=== PATIENT | female | born 1940 | race Caucasian/White ===

== ENCOUNTER 2021-12-05 07:12 | Day surgery (SDC) | payer MEDICAID, SELFPAY ==
[2021-11-29 14:20] VITALS: BMI 22.2
--- NOTE | 2021-12-01 08:01 | MHC.SHP ---
Pre-Procedural Eval Section A Date of Service: 12/01/21 The patient is an INPATIENT: No Changes since office visit: No Cold of Flu in the past 2 weeks, No New Medical Problems, No Changes in Medication and No Patient answered all questions The History & Physical has been completed within 30 days and I have reviewed it.: Yes Section B Chief Complaint: cataract Allergies: Allergies Allergy/AdvReac Type Severity Reaction Status Date / Time No Known Allergies Allergy Verified 11/29/21 14:24 Plan Diagnosis/Plan: Unchanged I have reviewed the history and physical and performed a pertinent physical examination on my patient. No changes have occurred unless specified.
--- NOTE | 2021-12-02 08:56 | P.CONAN_ITS ---
Documented by User: Monique Fernandes NP 12/02/21 08:57 HPI - Anesthesia Eval Consult details Narrative: 81yo F for Left Cataract Extraction IOL Insertion PCP cleared No previous cataract on record Xarelto for afib [facility] Past Medical History Medical History (Updated 11/29/21 @ 14:43 by Scarlet Hahn, TEO) Atrial fibrillation CAD (coronary artery disease) Chronic renal insufficiency COVID-19 vaccination declined History of COVID-19 Mitral regurgitation Myocardial infarction On anticoagulant therapy Pulmonary hypertension Surgical History Surgical History (Updated 11/29/21 @ 14:20 by Scarlet Hahn RN) History of total hip arthroplasty Hx of laparoscopy Social History Social History Are you a primary rn managed care to a significant other at home: No Do you presently have visiting nurse or other home services: No Patient Tobacco Use Status: Never used Tobacco Use of substances other than those prescribed or required for medical reasons: No Have you been hit, kicked, punched, or otherwise hurt by someone within the past year? If so, by whom?: No Advance Directives: No Advance Directives Information Provided: Yes Advance Directives on File: No Recently lost weight without trying: No Eating poorly because of decreased appetite: No Nutrition Risks: Surgical patient >75years Meds Allergies Allergy/AdvReac Type Severity Reaction Status Date / Time No Known Allergies Allergy Verified 12/05/21 07:42 Home Medications Medication Instructions Recorded Confirmed Last Taken Type bisoprolol fumarate 5 mg tablet 1 tab PO DAILY 11/29/21 11/29/21 Unknown History losartan 50 mg tablet 1 tab PO DAILY 11/29/21 11/29/21 Unknown History rivaroxaban 20 mg tablet (Xarelto) 1 tab PO QPM 11/29/21 11/29/21 Unknown History Exam Exam Date and Time: December 02, 2021 0856 Height,Weight and Vital Signs: Height 5 ft Weight 51.71 kg Assessment and Plan Assessment Anesthesia Assessment: Chart Reviewed Documented by User: Tray Rosas MD 12/05/21 08:05 [facility] Past Medical History Medical History (Updated 11/29/21 @ 14:43 by Scarlet Hahn RN) Atrial fibrillation CAD (coronary artery disease) Chronic renal insufficiency COVID-19 vaccination declined History of COVID-19 Mitral regurgitation Myocardial infarction On anticoagulant therapy Pulmonary hypertension Family History Family history of problems with anesthesia: No Surgical History Surgical History (Updated 11/29/21 @ 14:20 by Scarlet Hahn RN) History of total hip arthroplasty Hx of laparoscopy History of Problems with Anesthesia: No Social History Social History Are you a primary rn managed care to a significant other at home: No Do you presently have visiting nurse or other home services: No Patient Tobacco Use Status: Never used Tobacco Use of substances other than those prescribed or required for medical reasons: No Have you been hit, kicked, punched, or otherwise hurt by someone within the past year? If so, by whom?: No Advance Directives: No Advance Directives Information Provided: Yes Advance Directives on File: No Recently lost weight without trying: No Eating poorly because of decreased appetite: No Nutrition Risks: Surgical patient >75years Meds Allergies Allergy/AdvReac Type Severity Reaction Status Date / Time No Known Allergies Allergy Verified 12/05/21 07:42 Home Medications Medication Instructions Recorded Confirmed Last Taken Type bisoprolol fumarate 5 mg tablet 1 tab PO DAILY 11/29/21 11/29/21 Unknown History losartan 50 mg tablet 1 tab PO DAILY 11/29/21 11/29/21 Unknown History rivaroxaban 20 mg tablet (Xarelto) 1 tab PO QPM 11/29/21 11/29/21 Unknown History Exam Airway Mallampati Class: II TM Dist: >3cm Neck ROM: Full Denture: Upper and Lower Heart: irreg irre s1s2 Lungs: cta b/l Assessment and Plan Assessment Anesthesia Assessment: Anesthesia Plan Discussed Final Anesthetic Review Family History of Problems with Anesthesia: No History of Problems with Anesthesia: No NPO: Yes ASA Class: III Final Preanesthetic Review: No Changes in Pt Med Stat, Meds/Allgs Chart Reviewed, Consent Obtained/Reviewed and Anes Risks/Benef Reviewed Patient Risk: Intermediate Procedure Risk: Low Assessment/Block/Sedation in SS: Assess/Block/Sedation-SS Anesthetic Plan Anesthetic Plan: MAC: and Agree w/ Assess. and Plan Disposition: Standard PACU
[2021-12-05] MEDS: Tetracaine HCl/PF 0.5% Oph Sol 4 ML DROPS 1 DROP EYE-LEFT (07:56)
[2021-12-05] MEDS: Lactated Ringers 500 ML 50 ML IV (07:57)
[2021-12-05] MEDS: Tropicamide 1 % Ophth Sol 3 ML BTL 1 DROP EYE-LEFT ×3 (07:57→08:09)
[2021-12-05] MEDS: Phenylephrine HCL 2.5% Oph SoL 2 ML BOTTLE 1 DROP EYE-LEFT ×3 (08:01→08:13)
[2021-12-05 08:08] VITALS: BP 157/94; PULSE 70; RESP 16; TEMP 36.9; O2SAT 97
--- NOTE | 2021-12-05 08:38 | HO.PNOPHT ---
Ophthalmology Procedure Procedure Date of Service: 12/05/21 Ophthalmology Viscoelastic: Healon Duet Dual Pack Pro Ophthalmology Lenses: TECNIS [id number] (25.5) Procedure Notes: PREOPERATIVE DIAGNOSIS: Decreased visual acuity left eye secondary to cataract POSTOPERATIVE DIAGNOSIS: Same PROCEDURE: Left cataract extraction with intraocular lens insertion SURGEON: Cam Roman M.D. ANESTHESIA: Topical/MAC ESTIMATED BLOOD LOSS: None COMPLICATIONS: None After obtaining informed consent, the patient was brought to the operation room suite and placed in the supine position. After adequate sedation per anesthesia, topical drops of Tetracaine were given to the left eye. The eye was then prepped and draped in the usual sterile fashion. The operating room microscope was then positioned over the operative eye and a lid speculum placed. A paracentesis was created. Viscoelastic was then instilled into the anterior chamber. A three plane incision was then created temporally, utilizing a 2.85 mm keratome. Capsulotomy forceps were then utilized to create a circular tear capsulotomy. Hydrodissection and hydrodelineation were carried out until adequate mobilization of the nucleus occurred. Phacoemulsification was then utilized to remove the dense central nucleus followed by removal of the cortical material utilizing the automated aspiration irrigation unit. Viscoat elastic was instilled into the posterior capsular bag followed by placement of a posterior chamber intraocular lens without difficulty. The residual Viscoat elastic was then removed utilizing the automated IA machine. The wound was check and found to be watertight. The patient tolerated the procedure well and the lid speculum was removed. Intracameral injection of Vigamox 0.1 mL followed by a subtenon injection of Kenalog-40 0.2 mL were administered. The patient will be seen in the a.m.
[2021-12-05 09:04] VITALS: BP 167/96; PULSE 75; RESP 18; TEMP 36.8; O2SAT 95
== END 2021-12-05 09:27 | disposition home or self-care (01) ==
PROVIDERS: Visit Provider Ophthalmology
PROC: (CPT 66985; principal; 2021-12-05 08:50)
DX: H25.12 Age-related nuclear cataract, left eye (principal); H52.4 Presbyopia; I12.9 Hypertensive chronic kidney disease with stage 1 through stage 4 chronic kidney disease, or unspecified chronic kidney disease; N18.9 Chronic kidney disease, unspecified; H35.3131 Nonexudative age-related macular degeneration, bilateral, early dry stage; Z79.899 Other long term (current) drug therapy
CPT/HCPCS: 66984; J3010; J3300; V2632

== ENCOUNTER 2021-12-19 07:55 | Day surgery (SDC) | payer MEDICAID, SELFPAY ==
[2021-11-29 14:25] VITALS: BMI 22.2
--- NOTE | 2021-12-15 08:09 | MHC.SHP ---
Pre-Procedural Eval Section A Date of Service: 12/15/21 The patient is an INPATIENT: No Changes since office visit: No Cold of Flu in the past 2 weeks, No New Medical Problems, No Changes in Medication and No Patient answered all questions The History & Physical has been completed within 30 days and I have reviewed it.: Yes Section B Chief Complaint: cataract Allergies: Allergies Allergy/AdvReac Type Severity Reaction Status Date / Time No Known Allergies Allergy Verified 12/05/21 07:42 Plan Diagnosis/Plan: Unchanged I have reviewed the history and physical and performed a pertinent physical examination on my patient. No changes have occurred unless specified.
--- NOTE | 2021-12-15 10:59 | HO.ANESPROP2 ---
Documented by User: Monique Fernandes NP 12/15/21 11:00 HPI - Anesthesia Eval Consult details Narrative: 81yo F for Right Cataract Extraction IOL Insertion PCP cleared Left eye 12/06/21 with MAC: Fent 100 Xarelto for afib [facility] Past Medical History Medical History (Updated 11/29/21 @ 14:43 by Scarlet Hahn RN) Atrial fibrillation CAD (coronary artery disease) Chronic renal insufficiency COVID-19 vaccination declined History of COVID-19 Mitral regurgitation Myocardial infarction On anticoagulant therapy Pulmonary hypertension Family History Family history of problems with anesthesia: No Surgical History Surgical History (Updated 11/29/21 @ 14:20 by Scarlet Hahn RN) History of total hip arthroplasty Hx of laparoscopy History of Problems with Anesthesia: No Social History Social History Are you a primary school childcare attendant to a significant other at home: No Do you presently have visiting nurse or other home services: No Patient Tobacco Use Status: Never used Tobacco Use of substances other than those prescribed or required for medical reasons: No Have you been hit, kicked, punched, or otherwise hurt by someone within the past year? If so, by whom?: No Advance Directives: No Advance Directives Information Provided: Yes Advance Directives on File: No Recently lost weight without trying: No Eating poorly because of decreased appetite: No Nutrition Risks: Surgical patient >75years Meds Allergies Allergy/AdvReac Type Severity Reaction Status Date / Time No Known Allergies Allergy Verified 12/05/21 07:42 Home Medications Medication Instructions Recorded Confirmed Last Taken Type bisoprolol fumarate 5 mg tablet 1 tab PO DAILY 11/29/21 11/29/21 Unknown History losartan 50 mg tablet 1 tab PO DAILY 11/29/21 11/29/21 Unknown History rivaroxaban 20 mg tablet (Xarelto) 1 tab PO QPM 11/29/21 11/29/21 Unknown History Exam Exam Date and Time: December 15, 2021 1059 Height,Weight and Vital Signs: Height 5 ft Weight 51.71 kg Assessment and Plan Assessment Anesthesia Assessment: Chart Reviewed Final Anesthetic Review Family History of Problems with Anesthesia: No History of Problems with Anesthesia: No Documented by User: Tray Rosas MD 12/19/21 06:27 [facility] Past Medical History Medical History (Updated 11/29/21 @ 14:43 by Scarlet Hahn, TEO) Atrial fibrillation CAD (coronary artery disease) Chronic renal insufficiency COVID-19 vaccination declined History of COVID-19 Mitral regurgitation Myocardial infarction On anticoagulant therapy Pulmonary hypertension Surgical History Surgical History (Updated 11/29/21 @ 14:20 by Scarlet Hahn RN) History of total hip arthroplasty Hx of laparoscopy Social History Social History Are you a primary school childcare attendant to a significant other at home: No Do you presently have visiting nurse or other home services: No Patient Tobacco Use Status: Never used Tobacco Use of substances other than those prescribed or required for medical reasons: No Have you been hit, kicked, punched, or otherwise hurt by someone within the past year? If so, by whom?: No Advance Directives: No Advance Directives Information Provided: Yes Advance Directives on File: No Recently lost weight without trying: No Eating poorly because of decreased appetite: No Nutrition Risks: Surgical patient >75years Meds Allergies Allergy/AdvReac Type Severity Reaction Status Date / Time No Known Allergies Allergy Verified 12/05/21 07:42 Home Medications Medication Instructions Recorded Confirmed Last Taken Type bisoprolol fumarate 5 mg tablet 1 tab PO DAILY 11/29/21 11/29/21 Unknown History losartan 50 mg tablet 1 tab PO DAILY 11/29/21 11/29/21 Unknown History rivaroxaban 20 mg tablet (Xarelto) 1 tab PO QPM 11/29/21 11/29/21 Unknown History Exam Airway Mallampati Class: II TM Dist: >3cm Neck ROM: Full Denture: Upper and Lower Loose/Missing/Broken Teeth: Yes Heart: irreg irreg s1s2 Lungs: cta b/l Assessment and Plan Assessment Anesthesia Assessment: Anesthesia Plan Discussed Final Anesthetic Review NPO: Yes ASA Class: III Final Preanesthetic Review: No Changes in Pt Med Stat, Meds/Allgs Chart Reviewed, Consent Obtained/Reviewed and Anes Risks/Benef Reviewed Patient Risk: Intermediate Procedure Risk: Low Assessment/Block/Sedation in SS: Assess/Block/Sedation-SS Anesthetic Plan Anesthetic Plan: MAC: and Agree w/ Assess. and Plan Disposition: Standard PACU
[2021-12-19 08:12] VITALS: BP 159/99; PULSE 70; RESP 18; TEMP 36.8; O2SAT 96
[2021-12-19] MEDS: Tetracaine HCl/PF 0.5% Oph Sol 4 ML DROPS 1 DROP EYE-RIGHT (08:16)
[2021-12-19] MEDS: Lactated Ringers 500 ML 50 ML IV (08:20)
[2021-12-19] MEDS: Tropicamide 1 % Ophth Sol 3 ML BTL 1 DROP EYE-RIGHT ×3 (08:20→08:30)
[2021-12-19] MEDS: Phenylephrine HCL 2.5% Oph SoL 2 ML BOTTLE 1 DROP EYE-RIGHT ×3 (08:23→08:33)
--- NOTE | 2021-12-19 09:16 | HO.PNOPHT ---
Ophthalmology Procedure Procedure Date of Service: 12/19/21 Ophthalmology Viscoelastic: Healrosanne Garrettt Dual Pack Pro Ophthalmology Lenses: TECGAUTAM [id number] (25) Procedure Notes: PREOPERATIVE DIAGNOSIS: Decreased visual acuity right eye secondary to cataract POSTOPERATIVE DIAGNOSIS: Same PROCEDURE: Right cataract extraction with intraocular lens insertion SURGEON: Cam Roman M.D. ANESTHESIA: Topical/MAC ESTIMATED BLOOD LOSS: None COMPLICATIONS: None After obtaining informed consent, the patient was brought to the operating room suite and placed in the supine position. After adequate sedation per anesthesia, topical drops of Tetracaine were given to the right eye. The eye was then prepped and draped in the usual sterile fashion. The operating room microscope was then positioned over the operative eye and a lid speculum placed. A paracentesis was created. Viscoelastic was then instilled into the anterior chamber. A three plane incision was then created temporally, utilizing a 2.85 mm keratome. Capsulotomy forceps were then utilized to create a circular tear capsulotomy. Hydrodissection and hydrodelineation were carried out until adequate mobilization of the nucleus occurred. Phacoemulsification was then utilized to remove the dense central nucleus followed by removal of the cortical material utilizing the automated aspiration irrigation unit. Viscoelastic was instilled into the posterior capsular bag followed by placement of a posterior chamber intraocular lens without difficulty. The residual Viscoelastic was then removed utilizing the automated IA machine. The wound was checked and found to be watertight. The patient tolerated the procedure well and the lid speculum was removed. Intracameral injection of Vigamox 0.1 mL followed by a subtenon injection of Kenalog-40 0.2 mL were administered. The patient will be seen in the a.m.
[2021-12-19 09:38] VITALS: BP 172/91; PULSE 74; RESP 16; TEMP 36.2; O2SAT 98
== END 2021-12-19 09:55 | disposition home or self-care (01) ==
PROVIDERS: Visit Provider Ophthalmology
PROC: (CPT 66985; principal; 2021-12-19 09:40)
DX: H25.11 Age-related nuclear cataract, right eye (principal); H52.4 Presbyopia; H35.3131 Nonexudative age-related macular degeneration, bilateral, early dry stage; I10 Essential (primary) hypertension; I48.0 Paroxysmal atrial fibrillation; I25.10 Atherosclerotic heart disease of native coronary artery without angina pectoris; Z79.01 Long term (current) use of anticoagulants; Z79.899 Other long term (current) drug therapy
CPT/HCPCS: 66984; J2250; J3010; J3300; V2632